=== PATIENT | male | born 1975 | race Caucasian/White ===

== ENCOUNTER 2022-09-21 10:39 | Emergency (ER) | payer BC, OTHER ==
[~2022-09-21] VITALS: Ht 193 cm; Wt 88.5 kg
[2022-09-21] MEDS ORDERED: IV NORMAL SALINE 1000 ML BAG IV ONE (11:00)
--- NOTE | 2022-09-21 11:00 | NUR ---
seen and examined by
[2022-09-21 11:05] LABS: HEMATOCRIT 42.2 % (36.7-47.1); MEAN CORPUSCULAR HEMOGLOBIN 31.5 uug (23.8-33.4); MEAN CORPUSCULAR VOLUME 91.5 fL (73.0-96.2); PLATELET COUNT (AUTO) 240 K/uL (152-348)
[2022-09-21 11:21] LABS: CARBON DIOXIDE 28 mmol/L (21-32); CHLORIDE 104 mmol/L (98-107); CREATININE 1.1 mg/dL (0.6-1.3); GLUCOSE 111 mg/dL (74-106); POTASSIUM 3.8 mmol/L (3.5-5.1); UREA NITROGEN, BLOOD 12 mg/dL (7-18)
--- NOTE | 2022-09-21 11:30 | NUR ---
IV site 20g on R AC NS 1L bolus given
[2022-09-21] MEDS ORDERED: BACITRACIN ZINC OINT 15 GM TUBE ONE (12:14)
--- NOTE | 2022-09-21 12:19 | NUR ---
Patient discharged to home in stable condition. Written and verbal after care instructions given. Patient verbalizes understanding of instructions. Stressed follow up or return to ER for worsening s/s.
[2022-09-21 12:20] VITALS: BP 117/75
== END 2022-09-21 12:20 | disposition home or self-care (01) ==
LOC: ER 10:39
DX: R55 Syncope and collapse (principal); R42 Dizziness and giddiness
CPT/HCPCS: 99285; 96360; 71045; 80048; 85025; 84484; 36415; 93005; J7040; A4663